=== PATIENT | male | born 1965 | race Hispanic/Latino ===

== ENCOUNTER 2020-08-31 12:39 | Emergency (ER) | payer SELFPAY ==
[2020-08-31 13:09] VITALS: BP 131/99
--- NOTE | 2020-08-31 13:12 | Emergency Department Report ---
ED General Adult HPI - General Chief complaint: Neck Pain/Injury Stated complaint: SWOLLEN LYMPH NODES Time Seen by Provider: 08/31/20 13:08 Source: patient Mode of arrival: Ambulatory Limitations: No Limitations - History of Present Illness Initial comments: 54-year-old male presents with complaints of lymphadenopathy in the neck x1 month. Patient states he saw his PCP regarding this about 1 week ago and was placed on 5 days of Amoxil. He states his symptoms improved and began to worsen once he completed the antibiotics. He states that there is mild tenderness to the lymph nodes, but denies any dysphagia, weight loss, fever/chills/sweats, fatigue, or history of cancer. He denies any past medical history states he is otherwise feeling well. -: Sudden - Related Data Previous Rx's Medication Instructions Recorded Last Taken Type Doxycycline Monohydrate 100 mg PO BID 10 Days #20 tablet 08/31/20 Unknown Rx Allergies Allergy/AdvReac Type Severity Reaction Status Date / Time No Known Allergies Allergy Unverified 08/31/20 13:09 ED Review of Systems ROS: Stated complaint: SWOLLEN LYMPH NODES Other details as noted in HPI Constitutional: denies: chills, diaphoresis, fever, malaise, weakness ENT: denies: dental pain Respiratory: denies: cough, shortness of breath Cardiovascular: denies: chest pain Endocrine: denies: excessive sweating Gastrointestinal: denies: nausea, vomiting Skin: denies: rash, lesions, change in color Neurological: denies: headache Hematological/Lymphatic: swollen glands ED Past Medical Hx - Past Medical History Previous Medical History?: No - Social History Smoking Status: Current Every Day Smoker Substance Use Type: None - Medications Home Medications: Home Medications Medication Instructions Recorded Confirmed Last Taken Type Doxycycline Monohydrate 100 mg PO BID 10 Days #20 tablet 08/31/20 Unknown Rx ED Physical Exam - General Limitations: No Limitations General appearance: alert, in no apparent distress - Head Head exam: Present: atraumatic, normocephalic - Eye Eye exam: Present: normal appearance. Absent: scleral icterus - ENT ENT exam: Present: normal exam, normal orophraynx - Neck Neck exam: Present: full ROM, lymphadenopathy (Bilateral anterior cervical lymphadenopathy noted with mild tenderness to palpation) - Respiratory Respiratory exam: Absent: respiratory distress - Cardiovascular Cardiovascular Exam: Present: regular rate - Neurological Exam Neurological exam: Present: alert, oriented X3 - Psychiatric Psychiatric exam: Present: normal affect, normal mood - Skin Skin exam: Present: warm, dry, intact, normal color. Absent: rash ED Course Vital Signs 08/31/20 13:06 Temperature 98.1 F Pulse Rate 82 Respiratory 18 Rate Blood Pressure 131/99 O2 Sat by Pulse 100 Oximetry ED Medical Decision Making - Lab Data Result diagrams: 08/31/20 13:37 08/31/20 13:37 - Medical Decision Making 54-year-old male presents with complaints of lymphadenopathy in the neck x1 month. Patient states he saw his PCP regarding this about 1 week ago and was placed on 5 days of Amoxil. He states his symptoms improved and began to worsen once he completed the antibiotics. He states that there is mild tenderness to the lymph nodes, but denies any dysphagia, weight loss, fever/chills/sweats, fatigue, or history of cancer. He denies any past medical history states he is otherwise feeling well. No significant abnormalities noted on CBC or CMP. Doxy given for empiric treatment. Patient is well-appearing and stable for discharge home. Recommend follow-up with primary care physician for further testing and evaluation. Discussed signs and symptoms that should prompt immediate return to emergency department in detail patient verbalized understanding. Critical care attestation.: If time is entered above; I have spent that time in minutes in the direct care of this critically ill patient, excluding procedure time. ED Disposition Clinical Impression: Cervical lymphadenopathy Disposition: [id number] TO HOME OR SELFCARE Is pt being admited?: No Condition: Stable Instructions: Lymphadenopathy Prescriptions: Doxycycline Monohydrate 100 mg PO BID 10 Days #20 tablet Referrals: PRIMARY CARE, [Primary Care Provider] - 3-5 Days
[2020-08-31 14:00] LABS: Basophils % (Auto) 0.5 % (0.0-1.8); Eosinophils # (Auto) 0.2 K/mm3 (0.0-0.4); Eosinophils % (Auto) 2.5 % (0.0-4.3); Hematocrit 45.6 % (35.5-45.6); Hemoglobin 15.4 gm/dl (11.8-15.2); Lymphocytes # (Auto) 2.7 K/mm3 (1.2-5.4); Lymphocytes % (Auto) 39.7 % (13.4-35.0); Mean Corpuscular HGB Conc 34 % (32-34); Mean Corpuscular Volume 93 fl (84-94); Monocytes # (Auto) 0.4 K/mm3 (0.0-0.8); Monocytes % (Auto) 6.4 % (0.0-7.3); Platelet Count 397 K/mm3 (140-440); Red Blood Count 4.91 M/mm3 (3.65-5.03); Red Cell Distribution Width 13.9 % (13.2-15.2)
[2020-08-31 14:21] LABS: Alanine Aminotransferase 20 units/L (7-56); Albumin 4.4 g/dL (3.9-5); Blood Urea Nitrogen 9 mg/dL (9-20); Calcium 9.5 mg/dL (8.4-10.2); Hemolysis Index 5
[2020-08-31 14:22] LABS: BUN/Creatinine Ratio 13
== END 2020-08-31 17:31 | disposition home or self-care (01) ==
LOC: ED 12:39
DX: R59.0 Localized enlarged lymph nodes (principal); F17.200 Nicotine dependence, unspecified, uncomplicated; Z79.899 Other long term (current) drug therapy
CPT/HCPCS: 36415; 80053; 85025; 86308; 99283

== ENCOUNTER 2021-04-29 10:11 | Inpatient (IN) | payer SELFPAY ==
--- NOTE | 2021-04-29 11:23 | Emergency Department Report ---
HPI - General Chief Complaint: Neuro Symptoms/Deficit Time Seen by Provider: 04/29/21 11:18 - HPI HPI: Patient present this morning secondary to weakness and slurred speech. He noticed that when he got up yesterday morning to get ready for work, he had s lurred speech. He states that he "felt awful." He felt as though he was dropping things and was weak on the left side. He stated that he kept spilling his coffee. Again, this was only left arm weakness. He did not notice any weakness involving the leg. Patient states that he thought his symptoms would get better and they have not. He states that he still has slurred speech and still feels as though he is dropping things with his left arm today. He decided to come in and see if he might of had a stroke. 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 He states that this is different. He denies paresthesias in the extremities. He has had no leg weakness. There is no incontinence of bowel or bladder. Patient denies recent head trauma. There is no cough or congestion. Has no chest pain. There is no shortness of breath. ED Past Medical Hx - Past Medical History Previous Medical History?: No Hx CVA: No Hx Heart Attack/AMI: No - Surgical History Past Surgical History?: Yes Additional Surgical History: hernia repair, [place] Palsy - Social History Smoking Status: Current Every Day Smoker Substance Use Type: None - Medications Home Medications: Home Medications Medication Instructions Recorded Confirmed Last Taken Type Doxycycline Monohydrate 100 mg PO BID 10 Days #20 tablet 08/31/20 Unknown Rx ED Review of Systems ROS: Stated complaint: POSSIBLE STROKE Other details as noted in HPI Comment: All other systems reviewed and negative Constitutional: denies: chills, fever Eyes: denies: vision change ENT: denies: hearing loss Respiratory: denies: cough Cardiovascular: denies: chest pain Endocrine: denies: increased thirst, increased urine Gastrointestinal: denies: abdominal pain Genitourinary: denies: dysuria Musculoskeletal: denies: back pain Skin: denies: rash Psychiatric: as per HPI Hematological/Lymphatic: denies: easy bruising Physical Exam - Physical Exam Vital Signs: Vital Signs 04/29/21 10:29 Temperature 98.2 F Pulse Rate 62 Respiratory 18 Rate Blood Pressure 133/92 [Right] O2 Sat by Pulse 96 Oximetry General: Well-developed, well-nourished male in no acute distress. Is cooperative and appropriate. Physical Exam: Patient does have some right facial droop consistent with prior Rea's palsy. He states that that is chronic. HEENT is otherwise normocephalic and atraumatic. Mucous membranes are moist. Pupils are equal round reactive to light. Extraocular movements are intact. Oropharynx reveals clear membranes. There is no erythema. Neck is supple without meningismus or lymphadenopathy. Trachea is midline. Heart is regular rate and rhythm without murmurs. Lungs are clear bilaterally. Abdomen is soft and nontender. It is flat. There is no organomegaly or mass. Back reveals no CVA tenderness. Extremities there are equal pulses. Reflexes are 2+ and brisk. Sensation is intact. Patient has no deformity. Skin is warm and dry. Neurologic exam reveals a alert and oriented male with right facial droop consistent with prior Rea's palsy. He has no pronator drift or dysdiadochokinesia. There is no sensory loss. Patient has 2+ reflexes. Strength is 5 out of 5. NIH score acutely is 0. He does have a one-point deficit from prior Rea's palsy with right side of his symptoms. His symptoms today are left-sided. ED Course Vital Signs 04/29/21 10:29 Temperature 98.2 F Pulse Rate 62 Respiratory 18 Rate Blood Pressure 133/92 [Right] O2 Sat by Pulse 96 Oximetry - Reevaluation(s) Reevaluation #1: 04/29/21 11:23 1115-labs and CT were ordered. Reevaluation #2: 04/29/21 11:41 CT was reviewed. Patient has intraparenchymal hemorrhage accounting for his symptoms. Neurosurgery was paged. Admission will be necessary. Reevaluation #3: 04/29/21 12:13 Case was discussed with Dr. Marinelli as well as Dr. Burton. Admission was planned. ICU bed will be requested. We will control the patient's blood pressure. He does have evidence of intraparenchymal bleed. He does not have evidence of uncontrolled hypertension. He is not coagulopathic and not antic oagulated. ED Medical Decision Making - Lab Data Result diagrams: 04/29/21 11:31 04/29/21 11:31 - Radiology Data Radiology results: image reviewed - Medical Decision Making Patient presented secondary to neurologic symptoms. He has evidence of intraparenchymal bleed requiring admission. This is not subdural or epidural in nature. It would be unlikely to require surgical evacuation. This does not appear to be ischemic. Patient does not have any trauma that would have accounted for this intraparenchymal hematoma. He will undergo admission, neuro checks, and repeat CT with neurosurgical consultation. Critical Care Time: Yes Critical care attestation.: If time is entered above; I have spent that time in minutes in the direct care of this critically ill patient, excluding procedure time. ED Disposition Clinical Impression: Intraparenchymal hematoma of brain Qualifiers: Encounter type: initial encounter Laterality: right Loss of consciousness presence/duration: without LOC Qualified Code(s): S06.340A - Traumatic hemorrhage of right cerebrum without loss of consciousness, initial encounter Disposition: ADMITTED INPATIENT Is pt being admited?: Yes Does the pt Need Aspirin: No Condition: Serious
[2021-04-29 11:44] LABS: Hematocrit 41.6 % (35.5-45.6); Hemoglobin 14.2 gm/dl (11.8-15.2); Mean Corpuscular HGB Conc 34 % (32-34); Mean Corpuscular Volume 95 fl (84-94); Platelet Count 358 K/mm3 (140-440); Red Blood Count 4.38 M/mm3 (3.65-5.03); Red Cell Distribution Width 13.8 % (13.2-15.2)
--- NOTE | 2021-04-29 11:57 | History and Physical Report ---
History of Present Illness Chief complaint: My words are slurred History of present illness: 55 YO Male with [place] Palsy, Nicotine Dependence presents to ED for evaluation. Patient states that he was in his usual state of health and upon awakening from sleep yesterday the patient reports "slurred speech". Patient also acknowledges left arm weakness and the inability to hold his coffee cup in his left hand. Patient was transported to [facility] via private vehicle for further care and evaluation of the aforementioned symptoms. The patient was seen and evaluated in the emergency department. All lab and imaging studies reviewed. The patient underwent CT scan of the brain which revealed a 2 x 2 x 2 cm right basal ganglia hematoma. Neurosurgery team consulted in ED. Patient admitted to ICU due to increased risk of worsening symptoms. Patient denies fever, chills, chest pain, palpitation, productive cough, skin rash, recent ill contacts, known exposure to COVID-19. No prior admission for review. No medication listed at time of admission for reconciliation. Past History Past Medical History: other (See HPI) Past Surgical History: hernia repair Social history: , smoking Family history: hypertension Medications and Allergies Allergies Allergy/AdvReac Type Severity Reaction Status Date / Time No Known Allergies Allergy Unverified 08/31/20 13:09 Home Medications Medication Instructions Recorded Confirmed Last Taken Type Doxycycline Monohydrate 100 mg PO BID 10 Days #20 tablet 08/31/20 Unknown Rx Review of Systems Constitutional: no weight loss, no weight gain, no fever, no chills Ears, nose, mouth and throat: no ear pain, no tinnitis, no decreased hearing, no nose pain, no nasal congestion, no nasal discharge Cardiovascular: no chest pain, no palpitations, no rapid/irregular heart beat, no syncope Respiratory: no cough, no cough with sputum, no shortness of breath, no dyspnea on exertion Gastrointestinal: no abdominal pain, no vomiting, no diarrhea, no change in bowel habits Genitourinary Male: no hematuria, no flank pain, no discharge, no urinary hesitancy Rectal: no pain, no incontinence, no bleeding Musculoskeletal: no neck stiffness, no shooting arm pain, no arm numbness/tingling, no low back pain, no shooting leg pain Integumentary: no rash, no redness, no wounds, no boils, no blisters Neurological: weakness, change in speech, no transient paralysis, no paralysis Psychiatric: no anxiety, no sleep disturbances, no insomnia, no change in appetite, no suicidal ideation Endocrine: no cold intolerance, no heat intolerance, no excessive thirst Hematologic/Lymphatic: no easy bruising, no lymphadenopathy Allergic/Immunologic: no urticaria, no allergic rhinitis, no angioedema Exam - Constitutional Vitals: Temp Pulse Resp BP Pulse Ox 98.2 F 62 18 133/92 96 04/29/21 10:04/29/21 10:29 04/29/21 10:04/29/21 10:04/29/21 10:29 General appearance: Present: mild distress - EENT Eyes: Present: PERRL ENT: hearing intact, clear oral mucosa - Neck Neck: Present: supple, normal ROM - Respiratory Respiratory effort: normal Respiratory: bilateral: CTA - Cardiovascular Heart Sounds: Present: S1 & S2. Absent: rub, click - Extremities Extremities: pulses symmetrical, No edema Peripheral Pulses: within normal limits - Abdominal General gastrointestinal: Present: soft, non-tender, non-distended, normal bowel sounds Male genitourinary: Present: normal - Integumentary Integumentary: Present: clear, warm, dry - Musculoskeletal Musculoskeletal: gait normal, strength equal bilaterally - Psychiatric Psychiatric: appropriate mood/affect, intact judgment & insight - Neurologic Neurologic: CNII-XII intact, moves all extremities Results - Labs CBC & Chem 7: 04/29/21 11:31 04/29/21 11:31 Labs: Abnormal lab results 04/29/21 Range/Units 11:31 MCV 95 H (84-94) fl Assessment and Plan - Patient Problems (1) Intraparenchymal hematoma of brain Current Visit: No Status: Acute Qualifiers: Encounter type: initial encounter Laterality: right Loss of consciousness presence/duration: without LOC Qualified Code(s): S06.340A - Traumatic hemorrhage of right cerebrum without loss of consciousness, initial encounter Plan to address problem: CT head, neuro checks every hour, seizure precautions, aspiration precautions, fall precautions, neurosurgery team consulted, critical care team consulted, repeat CT scan of the head at 1700 hrs. Maintain systolic blood pressure less than or equal to 140 mmHg. Hydralazine 10 mg IV every 6 hours as needed for systolic blood pressure greater than or equal to 140 mmHg. The high probability of a clinically significant, sudden or life threatening deterioration of the [neuro] system(s) required my full and direct attention, intervention and personal management. The aggregate critical care time was [65] minutes. This time is in addition to time spent performing reported procedures but includes the following: [x] Data Review and interpretation [x] Patient assessment and monitoring of vital signs [x] Documentation [x] Medication orders and management (2) Nicotine dependence Current Visit: Yes Status: Acute Qualifiers: Nicotine product type: cigarettes Substance use status: in withdrawal Qualified Code(s): F17.213 - Nicotine dependence, cigarettes, with withdrawal Plan to address problem: Supportive care, smoking cessation counseling, behavior change counseling, +15 minutes. (3) DVT prophylaxis Current Visit: Yes Status: Acute Plan to address problem: SCDs bilateral lower extremities while in bed, hold anticoagulation at this time due to intraparenchymal hemorrhage
[2021-04-29 12:05] LABS: BUN/Creatinine Ratio 14; Blood Urea Nitrogen 11 mg/dL (9-20); Calcium 9.1 mg/dL (8.4-10.2); Hemolysis Index 9
--- NOTE | 2021-04-29 12:07 | Cat Scan Report ---
. CT head/brain wo con INDICATION / CLINICAL INFORMATION: 55 years Male; dysarthria, left hand weakness, evaluate for strok. TECHNIQUE: Routine CT head without contrast. All CT scans at this location are performed using CT dos e reduction for ALARA by means of automated exposure control. COMPARISON: None. FINDINGS: BRAIN / INTRACRANIAL CONTENTS: There is an acute hematoma centered along the posterior right basal ga nglia measuring 2.1 cm AP by 2.2 cm transverse by 2.6 cm sagittally in greatest dimensions. This find ing may be on a hypertensive basis given the location. There is surrounding edema with mild degree of mass effect and slight midline shift. The brain parenchyma otherwise demonstrate appropriate attenua tion for age. There is mild asymmetry of the temporal horns, slightly greater on the right. This finding and may be developmental or continued follow-up would be recommended to exclude developing a hydrocephalus at. ORBITS: No significant abnormality of visualized orbits. SINUSES / MASTOIDS: No significant abnormality in the visualized paranasal sinuses or mastoid air paty ls. CRANIOCERVICAL JUNCTION: No significant abnormality. ADDITIONAL FINDINGS: None. IMPRESSION: 1. There is a 2.1 x 2.2 x 2.6 cm acute hematoma centered within the right basal ganglia with associat ed surrounding edema and mild mass effect as detailed above. The findings represent a positive clinical test result and were discovered at 10:53 AM and called araseli rgently to the requesting physician was a number was obtained at 10:56 AM Central standard time.. Signer Name: Xavi Montanez MD Signed: 04/29/2021 12:02 PM Workstation Name: [id number]
[2021-04-29] MEDS ORDERED: HYDROmorphone 1 MG/1 ML INJ IV PRN (13:00)
[2021-04-29] MEDS ORDERED: hydrALAZINE 20 MG/1 ML INJ IV PRN (13:00)
[2021-04-29] MEDS ORDERED: oxyCODONE /ACETAMINOPHEN 5-325MG TAB PO PRN (13:00)
[2021-04-29] MEDS ORDERED: ACETAMINOPHEN 325 MG TAB PO PRN (13:00)
[2021-04-29] MEDS ORDERED: NICOTINE 7 MG/24 HR PATCH TD SCH (17:00)
--- NOTE | 2021-04-29 17:34 | Cat Scan Report ---
CT BRAIN: 04/29/2021 at 1657 hours ET INDICATION / CLINICAL INFORMATION: Intracranial hemorrhage. Follow-up COMPARISON: 04/29/2021 at 1124 hours ET FINDINGS: BRAIN/INTRACRANIAL STRUCTURES: Unenhanced CT images of the brain were obtained and compared to the ea rlier exam. There is been no change. Again seen is the 2.6 cm hemorrhage centered in the region of the right basal ganglia some surroundin g edema. No new hemorrhage or lesion is present. Ventricles and sulci remain normal in size and shape. EXTRACRANIAL STRUCTURES: Unremarkable. IMPRESSION: Stable right subcortical hemorrhage. No evidence of superimposed abnormality. All CT scans at this location are performed using dose reduction to ALARA by means of automated expos ure control. Signer Name: Herve Shah MD Signed: 04/29/2021 5:29 PM Workstation Name: [id number]
--- NOTE | 2021-04-29 23:11 | Consultation ---
History of Present Illness Consult date: 04/29/21 Requesting physician: LACI ROBISON Reason for Consult: Brain hemorrhage Chief complaint: left hand weakness History of present illness: Denis Pittman is a 55 y/o M w/ history of Rea's Palsy, brought to [facility] ER on yesterday due to acute onset left sided clumsiness and weakness. He noticed that he was unable to grasp his coffee cup this morning, which raised his concern. CT head revealed a right putaminal hemorrhage, measuring 2.6 cm. There is no hydrocephalus or significant mass effect. Repeat CT head is stable. Mr. Pittman denies significant headache. Past History Past Medical History: other (See HPI) Past Surgical History: hernia repair Social history: , smoking Family history: hypertension Medications and Allergies Allergies Allergy/AdvReac Type Severity Reaction Status Date / Time No Known Allergies Allergy Unverified 08/31/20 13:09 Home Medications Medication Instructions Recorded Confirmed Last Taken Type Doxycycline Monohydrate 100 mg PO BID 10 Days #20 tablet 08/31/20 Unknown Rx Active Meds: Active Medications Acetaminophen (Acetaminophen 325 Mg Tab) 650 mg PO Q6H PRN PRN Reason: Pain MILD(1-3)/Fever >100.5/[place] Hydralazine HCl (Hydralazine 20 Mg/1 Ml Inj) 10 mg IV Q6HR PRN PRN Reason: Hypertension Hydromorphone HCl (Hydromorphone 1 Mg/1 Ml Inj) 0.5 mg IV Q12H PRN PRN Reason: Pain , Severe (7-10) Nicotine (Nicotine 7 Mg/24 Hr Patch) 7 mg TD QDAY [facility] Last Admin: 04/29/21 17:20 Dose: 7 mg Documented by: Oxycodone/Acetaminophen (Oxycodone /Acetaminophen 5-325mg Tab) 1 tab PO Q12H PRN PRN Reason: Pain, Moderate (4-6) Sodium Chloride (Sodium Chloride 0.9% 10 Ml Flush Syringe) 10 ml IV BID [facility] Last Admin: 04/29/21 21:44 Dose: 10 ml Documented by: Sodium Chloride (Sodium Chloride 0.9% 10 Ml Flush Syringe) 10 ml IV PRN PRN PRN Reason: LINE FLUSH Review of Systems All systems: negative (what is specified in HPI) Physical Examination - Vital Signs Vital Signs: Vital Signs Temp Pulse Resp BP Pulse Ox 98.2 F 62 18 133/92 96 04/29/21 10:29 04/29/21 10:29 04/29/21 10:29 04/29/21 10:29 04/29/21 10:29 - Physical Exam Narrative exam: 55 y/o M w/ right putaminal hemorrhage -no surgical intervention -maintain SBP < 140 -PT/OT/ST -hold blood thinners -will arrange for outpatient follow up in [address] head -please notify if questions/concerns Results - Laboratory Findings CBC and BMP: 04/29/21 11:31 04/29/21 11:31 Abnormal Lab Findings: Abnormal Labs 04/29/21 04/29/21 11:31 11:31 MCV 95 H Chloride 107.8 H Glucose 68 L
--- NOTE | 2021-04-30 07:51 | Progress Note ---
Assessment and Plan Assessment and plan: -- Intraparenchymal hematoma of brain Current Visit: No Status: Acute CT head without contrast 04/29/2021; there is a 2.1 x 2.2 x 2.6 cm acute hematoma centered within the right basal ganglia with associated surrounding edema and mild mass-effect as detailed above. CT head without contrast; 04/29/2021; 6 hours after the first CT head . stable right subcortical hemorrhage no evidence of superimposed abnormality Maintain systolic blood pressure less than or equal to 140 mmHg. Hydralazine 10 mg IV every 6 hours as needed for systolic blood pressure greater than or equal to 140 mmHg. Neuro surgery evaluated the patient, no surgical intervention, Recommend PT, OT and speech therapy. The high probability of a clinically significant, sudden or life threatening deterioration of the [neuro] system(s) required my full and direct attention, i ntervention and personal management. The aggregate critical care time was [65] minutes. This time is in addition to time spent performing reported procedures but includes the following: [x] Data Review and interpretation [x] Patient assessment and monitoring of vital signs [x] Documentation [x] Medication orders and management --Nicotine dependence Current Visit: Yes Status: Acute smoking cessation counseling, behavior change counseling, +17 minutes Nicotine patch as needed --DVT prophylaxis Current Visit: Yes Status: Acute SCDs bilateral lower extremities while in bed, No anticoagulation for prophylaxis due to intraparenchymal hemorrhage We will closely monitor the patient and adjust management as needed Follow PT OT and ST evaluation and recommendations Neurosurgical evaluation recommendations noted and appreciated Plan of care discussed with the patient as well as his nurse 04/30/2021; Follow PT OT ST Neurosurgery evaluation noted and appreciated no surgical intervention Cleared for discharge after PT OT ST and follow-up patient History Interval history: I have seen and examined the patient at the bedside in ER this morning awaiting bed assignment Patient feels better no new complaints Denies headache dizziness or any focal weakness Hospitalist Physical - Constitutional Vitals: Temp Pulse Resp BP Pulse Ox 97.8 F 46 L 12 118/68 98 04/30/21 06:52 04/30/21 06:52 04/30/21 06:52 04/30/21 06:52 04/30/21 06:52 General appearance: Present: no acute distress, well-nourished - EENT Eyes: Present: PERRL, EOM intact - Neck Neck: Present: supple, normal ROM - Respiratory Respiratory effort: normal Respiratory: bilateral: diminished, negative: wheezing - Cardiovascular Rhythm: regular Heart Sounds: Present: S1 & S2 - Extremities Extremities: no ischemia, No edema - Abdominal General gastrointestinal: soft, non-tender, non-distended, normal bowel sounds - Integumentary Integumentary: Present: clear, warm - Psychiatric Psychiatric: appropriate mood/affect, cooperative - Neurologic Neurologic: CNII-XII intact, moves all extremities Results - Labs CBC & Chem 7: 04/30/21 08:04 04/30/21 08:04 Labs: Laboratory Last Values WBC 7.8 K/mm3 (4.5-11.0) 04/29/21 11:31 RBC 4.38 M/mm3 (3.65-5.03) 04/29/21 11:31 Hgb 14.2 gm/dl (11.8-15.2) 04/29/21 11:31 Hct 41.6 % (35.5-45.6) 04/29/21 11:31 MCV 95 fl (84-94) H 04/29/21 11:31 MCH 32 pg (28-32) 04/29/21 11:31 MCHC 34 % (32-34) 04/29/21 11:31 RDW 13.8 % (13.2-15.2) 04/29/21 11:31 Plt Count 358 K/mm3 (140-440) 04/29/21 11:31 Sodium 143 mmol/L (137-145) 04/29/21 11:31 Potassium 3.6 mmol/L (3.6-5.0) 04/29/21 11:31 Chloride 107.8 mmol/L (98-107) H 04/29/21 11:31 Carbon Dioxide 29 mmol/L (22-30) 04/29/21 11:31 Anion Gap 10 mmol/L 04/29/21 11:31 BUN 11 mg/dL (9-20) 04/29/21 11:31 Creatinine 0.8 mg/dL (0.8-1.3) 04/29/21 11:31 Estimated GFR > 60 ml/min 04/29/21 11:31 BUN/Creatinine Ratio 14 % 04/29/21 11:31 Glucose 68 mg/dL (75-100) L 04/29/21 11:31 Calcium 9.1 mg/dL (8.4-10.2) 04/29/21 11:31 Active Medications - Current Medications Current Medications: Generic Name Dose Route Start Last Admin Trade Name Freq PRN Reason Stop Dose Admin Acetaminophen 650 mg 04/29/21 13:00 Acetaminophen 325 Mg Tab PO Q6H PRN Pain MILD(1-3)/Fever >100.5/TILLMAN Hydralazine HCl 10 mg 04/29/21 13:00 Hydralazine 20 Mg/1 Ml Inj IV Q6HR PRN Hypertension Hydromorphone HCl 0.5 mg 04/29/21 13:00 Hydromorphone 1 Mg/1 Ml Inj IV Q12H PRN Pain , Severe (7-10) Nicotine 7 mg 04/29/21 17:00 04/29/21 17:20 Nicotine 7 Mg/24 Hr Patch TD 7 mg QDAY LILLIAM Administration Oxycodone/Acetaminophen 1 tab 04/29/21 13:00 Oxycodone /Acetaminophen 5-325mg Tab PO Q12H PRN Pain, Moderate (4-6) Sodium Chloride 10 ml 04/29/21 22:00 04/29/21 21:44 Sodium Chloride 0.9% 10 Ml Flush Syringe IV 10 ml BID LILLIAM Administration Sodium Chloride 10 ml 04/29/21 13:00 Sodium Chloride 0.9% 10 Ml Flush Syringe IV PRN PRN LINE FLUSH
[2021-04-30 08:30] LABS: Basophils # (Auto) 0.1 K/mm3 (0.0-0.1); Eosinophils # (Auto) 0.1 K/mm3 (0.0-0.4); Eosinophils % (Auto) 2.1 % (0.0-4.3); Hematocrit 41.1 % (35.5-45.6); Hemoglobin 14.2 gm/dl (11.8-15.2); Lymphocytes # (Auto) 2.5 K/mm3 (1.2-5.4); Lymphocytes % (Auto) 35.1 % (13.4-35.0); Mean Corpuscular HGB Conc 35 % (32-34); Mean Corpuscular Volume 95 fl (84-94); Monocytes # (Auto) 0.6 K/mm3 (0.0-0.8); Monocytes % (Auto) 8.3 % (0.0-7.3); Platelet Count 315 K/mm3 (140-440); Red Blood Count 4.32 M/mm3 (3.65-5.03); Red Cell Distribution Width 13.8 % (13.2-15.2)
[2021-04-30 08:37] LABS: BUN/Creatinine Ratio 18; Blood Urea Nitrogen 14 mg/dL (9-20); Calcium 8.8 mg/dL (8.4-10.2); Hemolysis Index 9
--- NOTE | 2021-04-30 12:12 | Event Note ---
Date: 04/30/21
--- NOTE | 2021-04-30 12:14 | Progress Note ---
Assessment and Plan Assessment and plan: --ESBL positive surgical wound culture; Current Visit: Yes Status: Acute ID ID recommended 7 days of meropenem starting from 04/22/2021 evening dose, Midline is placed patient is self-pay and cannot afford these antibiotics patient will complete antibiotics inpatient --Sepsis due to ESBL infection Current Visit: Yes Status: Acute ID evaluation noted, total 7 days of IV meropenem every 8 hours -- Acute appendicitis with abscess Iatrogenic sigmoid colon injury Current Visit: Yes Status: Acute Surgery evaluated the patient s/p surgery 04/18/2021 1) Diagnostic laparoscopy 2) Open appendectomy with drainage of appendiceal abscess 3) Open repair of iatrogenic sigmoid colon injury Plan to discharge the patient today per Dr. Grey's recommendation However wound cultures came back positive for ESBL Discharge held ID evaluated, started on meropenem Contact isolation, closely monitor --Hiccups; Current Visit: Yes Status: Acute IV and oral Thorazine Advised to drink plenty of oral fluids Sitting the chair upright after every meal for half an hour --Small bowel obstruction Current Visit: Yes Status: Acute Resolved, surgeon advance diet --History of HIV (human immunodeficiency virus infection) Current Visit: Yes Status: Chronic Continue prehospital antiretroviral therapy, outpatient infectious disease follow-up. Upon discharge --DVT prophylaxis Current Visit: Yes Status: Acute Subcu Lovenox Discharge held due to positive ESBL surgical cultures, ID recommend total 7 days of IV meropenem Midline requested, DC planning per case management We will closely monitor the patient and adjust the management as needed Daily hospital course; 04/21/2021; Dr. Grey evaluated the patient, cleared for discharge for tomorrow However no ride available 04/22/2021; Patient's discharge is held due to positive ESBL surgical cultures ID consulted, started on meropenem, continue supportive care 04/23/2021; Patient is receiving imipenem as recommended by ID Total 8 days of IV meropenem, midline requested case management to assist with discharge planning and medications DC planning per CM ,disposition per surgery Patient has hiccups, Thorazine ordered I spoke with patient's sister Ms. Baca and discussed in detail patient's condition treatment and discharge plan She had many questions about DC planning, advised her to call back tomorrow and speak with the case management. She verbalized understanding 04/24/2021; Patient is receiving meropenem day 2/7 Case management assisting with home antibiotics Received midline,Intermittent hiccups, continue Thorazine Ambulate in the hallway as tolerated 04/25/2021 Patient feels better, hiccups have significantly improved Continue IV antibiotics, complete total 7 days 04/26/2021; continue antibiotics day 4 follow ID, surgery recommendations disposition discharge when stable and cleared by surgery and ID Resume service today; 04/29/2021; [facility]rey PCR test is positive COVID-19 infection Isolation precautions Transfer the patient to third floor[Covid floor\ Reconsult ID Pulmonary consulted possible bronchoscopy Hospitalist Physical - Constitutional Vitals: Temp Pulse Resp BP Pulse Ox 97.8 F 49 L 13 114/72 99 04/30/21 06:52 04/30/21 11:01 04/30/21 11:01 04/30/21 11:01 04/30/21 11:01 General appearance: Present: mild distress Results - Labs CBC & Chem 7: 04/30/21 08:04 04/30/21 08:04 Labs: Laboratory Last Values WBC 7.0 K/mm3 (4.5-11.0) 04/30/21 08:04 RBC 4.32 M/mm3 (3.65-5.03) 04/30/21 08:04 Hgb 14.2 gm/dl (11.8-15.2) 04/30/21 08:04 Hct 41.1 % (35.5-45.6) 04/30/21 08:04 MCV 95 fl (84-94) H 04/30/21 08:04 MCH 33 pg (28-32) H 04/30/21 08:04 MCHC 35 % (32-34) H 04/30/21 08:04 RDW 13.8 % (13.2-15.2) 04/30/21 08:04 Plt Count 315 K/mm3 (140-440) 04/30/21 08:04 Lymph % (Auto) 35.1 % (13.4-35.0) H 04/30/21 08:04 [place] % (Auto) 8.3 % (0.0-7.3) H 04/30/21 08:04 Eos % (Auto) 2.1 % (0.0-4.3) 04/30/21 08:04 Baso % (Auto) 1.0 % (0.0-1.8) 04/30/21 08:04 Lymph # (Auto) 2.5 K/mm3 (1.2-5.4) 04/30/21 08:04 [place] # (Auto) 0.6 K/mm3 (0.0-0.8) 04/30/21 08:04 Eos # (Auto) 0.1 K/mm3 (0.0-0.4) 04/30/21 08:04 Baso # (Auto) 0.1 K/mm3 (0.0-0.1) 04/30/21 08:04 Seg Neutrophils % 53.5 % (40.0-70.0) 04/30/21 08:04 Seg Neutrophils # 3.8 K/mm3 (1.8-7.7) 04/30/21 08:04 Sodium 142 mmol/L (137-145) 04/30/21 08:04 Potassium 3.9 mmol/L (3.6-5.0) 04/30/21 08:04 Chloride 107.2 mmol/L (98-107) H 04/30/21 08:04 Carbon Dioxide 26 mmol/L (22-30) 04/30/21 08:04 Anion Gap 13 mmol/L 04/30/21 08:04 BUN 14 mg/dL (9-20) 04/30/21 08:04 Creatinine 0.8 mg/dL (0.8-1.3) 04/30/21 08:04 Estimated GFR > 60 ml/min 04/30/21 08:04 BUN/Creatinine Ratio 18 % 04/30/21 08:04 Glucose 82 mg/dL (75-100) 04/30/21 08:04 Calcium 8.8 mg/dL (8.4-10.2) 04/30/21 08:04 Active Medications - Current Medications Current Medications: Generic Name Dose Route Start Last Admin Trade Name Freq PRN Reason Stop Dose Admin Acetaminophen 650 mg 04/29/21 13:00 Acetaminophen 325 Mg Tab PO Q6H PRN Pain MILD(1-3)/Fever >100.5/TILLMAN Hydralazine HCl 10 mg 04/29/21 13:00 Hydralazine 20 Mg/1 Ml Inj IV Q6HR PRN Hypertension Hydromorphone HCl 0.5 mg 04/29/21 13:00 Hydromorphone 1 Mg/1 Ml Inj IV Q12H PRN Pain , Severe (7-10) Nicotine 7 mg 04/29/21 17:00 04/29/21 17:20 Nicotine 7 Mg/24 Hr Patch TD 7 mg QDAY LILLIAM Administration Oxycodone/Acetaminophen 1 tab 04/29/21 13:00 Oxycodone /Acetaminophen 5-325mg Tab PO Q12H PRN Pain, Moderate (4-6) Sodium Chloride 10 ml 04/29/21 22:00 04/29/21 21:44 Sodium Chloride 0.9% 10 Ml Flush Syringe IV 10 ml BID LILLIAM Administration Sodium Chloride 10 ml 04/29/21 13:00 Sodium Chloride 0.9% 10 Ml Flush Syringe IV PRN PRN LINE FLUSH
--- NOTE | 2021-04-30 12:15 | Consultation ---
History of Present Illness Consult date: 04/30/21 Requesting physician: JUMANA EVANGELISTA Reason for consult: other (Acute Encephalopathy) History of present illness: Consult placed for ICU admission for neurochecks pending repeat CT brain Repeat CT brain reviewed by COLE and he can be stepped down .... please re-consult if needed Past History Past Medical History: other (See HPI) Past Surgical History: hernia repair Social history: , smoking Family history: hypertension Medications and Allergies Allergies Allergy/AdvReac Type Severity Reaction Status Date / Time No Known Allergies Allergy Unverified 08/31/20 13:09 Home Medications Medication Instructions Recorded Confirmed Last Taken Type Doxycycline Monohydrate 100 mg PO BID 10 Days #20 tablet 08/31/20 Unknown Rx Active Meds: Active Medications Acetaminophen (Acetaminophen 325 Mg Tab) 650 mg PO Q6H PRN PRN Reason: Pain MILD(1-3)/Fever >100.5/TILLMAN Hydralazine HCl (Hydralazine 20 Mg/1 Ml Inj) 10 mg IV Q6HR PRN PRN Reason: Hypertension Hydromorphone HCl (Hydromorphone 1 Mg/1 Ml Inj) 0.5 mg IV Q12H PRN PRN Reason: Pain , Severe (7-10) Nicotine (Nicotine 7 Mg/24 Hr Patch) 7 mg TD QDAY [facility] Last Admin: 04/29/21 17:20 Dose: 7 mg Documented by: Oxycodone/Acetaminophen (Oxycodone /Acetaminophen 5-325mg Tab) 1 tab PO Q12H PRN PRN Reason: Pain, Moderate (4-6) Sodium Chloride (Sodium Chloride 0.9% 10 Ml Flush Syringe) 10 ml IV BID [facility] Last Admin: 04/29/21 21:44 Dose: 10 ml Documented by: Sodium Chloride (Sodium Chloride 0.9% 10 Ml Flush Syringe) 10 ml IV PRN PRN PRN Reason: LINE FLUSH Physical Examination Vital signs: Vital Signs Temp Pulse Resp BP Pulse Ox 98.2 F 62 18 133/92 96 04/29/21 10:29 04/29/21 10:29 04/29/21 10:29 04/29/21 10:29 04/29/21 10:29 Results - Laboratory Findings CBC and BMP: 04/30/21 08:04 04/30/21 08:04 Abnormal lab findings: Abnormal Labs 04/29/21 04/29/21 04/30/21 11:31 11:31 08:04 MCV 95 H 95 H MCH 33 H MCHC 35 H Lymph % (Auto) 35.1 H [place] % (Auto) 8.3 H Chloride 107.8 H Glucose 68 L 04/30/21 08:04 MCV MCH MCHC Lymph % (Auto) [place] % (Auto) Chloride 107.2 H Glucose
--- NOTE | 2021-04-30 20:12 | Cat Scan Report ---
CT BRAIN: 04/30/2021 INDICATION / CLINICAL INFORMATION: f/u intraparenchymal hematoma. COMPARISON: CT brain 04/29/2021 FINDINGS: BRAIN/INTRACRANIAL STRUCTURES: Unenhanced CT images of the brain were obtained and compared to the pr ior exam from 04/29/2021. There is been no change. Again seen is the 2.6 cm hemorrhage centered in the region of the right basal ganglia with some surro unding edema. There is no evidence of superimposed abnormality. Underlying brain parenchyma is otherw ise unremarkable. EXTRACRANIAL STRUCTURES: Unremarkable. IMPRESSION: Stable right subcortical hemorrhage. All CT scans at this location are performed using dose reduction to ALARA by means of automated expos ure control. Signer Name: Herve Shah MD Signed: 04/30/2021 8:07 PM Workstation Name: [id number]
[2021-05-01 06:40] VITALS: BP 105/69
--- NOTE | 2021-05-01 07:55 | Progress Note ---
Assessment and Plan Assessment and plan: -- Intraparenchymal hematoma of brain Current Visit: No Status: Acute CT head without contrast 04/29/2021; there is a 2.1 x 2.2 x 2.6 cm acute hematoma centered within the right basal ganglia with associated surrounding edema and mild mass-effect as detailed above. CT head without contrast; 04/29/2021; 6 hours after the first CT head . stable right subcortical hemorrhage no evidence of superimposed abnormality f/u CT head without contrast 04/30/2021; stable right subcortical hemorrhage Maintain systolic blood pressure less than or equal to 140 mmHg. Hydralazine 10 mg IV every 6 hours as needed for systolic blood pressure greater than or equal to 140 mmHg. Neuro surgery evaluated the patient, no surgical intervention, Recommend PT, OT and speech therapy. The high probability of a clinically significant, sudden or life threatening det erioration of the [neuro] system(s) required my full and direct attention, intervention and personal management. The aggregate critical care time was [65] minutes. This time is in addition to time spent performing reported procedures but includes the following: [x] Data Review and interpretation [x] Patient assessment and monitoring of vital signs [x] Documentation [x] Medication orders and management --Nicotine dependence Current Visit: Yes Status: Acute smoking cessation counseling, behavior change counseling, +17 minutes Nicotine patch as needed --DVT prophylaxis Current Visit: Yes Status: Acute SCDs bilateral lower extremities while in bed, No anticoagulation for prophylaxis due to intraparenchymal hemorrhage We will closely monitor the patient and adjust management as needed Follow PT OT and ST evaluation and recommendations Neurosurgical evaluation recommendations noted and appreciated Plan of care discussed with the patient as well as his nurse 04/30/2021; Follow PT OT ST Neurosurgery evaluation noted and appreciated no surgical intervention Cleared for discharge after PT OT ST and follow-up patient 05/01/2021; Pending PT OT ST as recommended by neurosurgery Discharge if stable History Interval history: I have seen and examined the patient in ER awaiting bed assignment Patient has no new complaints Follow-up CT scan done yesterday evening show stable subcortical right hemorrhage Vital signs noted Hospitalist Physical - Constitutional Vitals: Temp Pulse Resp BP Pulse Ox 97.8 F 50 L 13 105/69 98 04/30/21 06:52 05/01/21 06:31 05/01/21 06:31 05/01/21 06:39 05/01/21 06:31 General appearance: Present: no acute distress, well-nourished - EENT Eyes: Present: PERRL, EOM intact - Neck Neck: Present: supple, normal ROM - Respiratory Respiratory effort: normal Respiratory: bilateral: diminished, negative: rales, rhonchi, wheezing - Cardiovascular Rhythm: regular Heart Sounds: Present: S1 & S2 - Extremities Extremities: no ischemia, No edema - Abdominal General gastrointestinal: soft, non-tender, non-distended, normal bowel sounds - Integumentary Integumentary: Present: clear, warm - Psychiatric Psychiatric: appropriate mood/affect, cooperative - Neurologic Neurologic: moves all extremities Results - Labs CBC & Chem 7: 04/30/21 08:04 04/30/21 08:04 Labs: Laboratory Last Values WBC 7.0 K/mm3 (4.5-11.0) 04/30/21 08:04 RBC 4.32 M/mm3 (3.65-5.03) 04/30/21 08:04 Hgb 14.2 gm/dl (11.8-15.2) 04/30/21 08:04 Hct 41.1 % (35.5-45.6) 04/30/21 08:04 MCV 95 fl (84-94) H 04/30/21 08:04 MCH 33 pg (28-32) H 04/30/21 08:04 MCHC 35 % (32-34) H 04/30/21 08:04 RDW 13.8 % (13.2-15.2) 04/30/21 08:04 Plt Count 315 K/mm3 (140-440) 04/30/21 08:04 Lymph % (Auto) 35.1 % (13.4-35.0) H 04/30/21 08:04 [place] % (Auto) 8.3 % (0.0-7.3) H 04/30/21 08:04 Eos % (Auto) 2.1 % (0.0-4.3) 04/30/21 08:04 Baso % (Auto) 1.0 % (0.0-1.8) 04/30/21 08:04 Lymph # (Auto) 2.5 K/mm3 (1.2-5.4) 04/30/21 08:04 [place] # (Auto) 0.6 K/mm3 (0.0-0.8) 04/30/21 08:04 Eos # (Auto) 0.1 K/mm3 (0.0-0.4) 04/30/21 08:04 Baso # (Auto) 0.1 K/mm3 (0.0-0.1) 04/30/21 08:04 Seg Neutrophils % 53.5 % (40.0-70.0) 04/30/21 08:04 Seg Neutrophils # 3.8 K/mm3 (1.8-7.7) 04/30/21 08:04 Sodium 142 mmol/L (137-145) 04/30/21 08:04 Potassium 3.9 mmol/L (3.6-5.0) 04/30/21 08:04 Chloride 107.2 mmol/L (98-107) H 04/30/21 08:04 Carbon Dioxide 26 mmol/L (22-30) 04/30/21 08:04 Anion Gap 13 mmol/L 04/30/21 08:04 BUN 14 mg/dL (9-20) 04/30/21 08:04 Creatinine 0.8 mg/dL (0.8-1.3) 04/30/21 08:04 Estimated GFR > 60 ml/min 04/30/21 08:04 BUN/Creatinine Ratio 18 % 04/30/21 08:04 Glucose 82 mg/dL (75-100) 04/30/21 08:04 Calcium 8.8 mg/dL (8.4-10.2) 04/30/21 08:04 Active Medications - Current Medications Current Medications: Generic Name Dose Route Start Last Admin Trade Name Freq PRN Reason Stop Dose Admin Acetaminophen 650 mg 04/29/21 13:00 Acetaminophen 325 Mg Tab PO Q6H PRN Pain MILD(1-3)/Fever >100.5/TILLMAN Hydralazine HCl 10 mg 04/29/21 13:00 Hydralazine 20 Mg/1 Ml Inj IV Q6HR PRN Hypertension Hydromorphone HCl 0.5 mg 04/29/21 13:00 Hydromorphone 1 Mg/1 Ml Inj IV Q12H PRN Pain , Severe (7-10) Nicotine 7 mg 04/29/21 17:00 04/29/21 17:20 Nicotine 7 Mg/24 Hr Patch TD 7 mg QDAY LILLIAM Administration Oxycodone/Acetaminophen 1 tab 04/29/21 13:00 Oxycodone /Acetaminophen 5-325mg Tab PO Q12H PRN Pain, Moderate (4-6) Sodium Chloride 10 ml 04/29/21 22:00 04/29/21 21:44 Sodium Chloride 0.9% 10 Ml Flush Syringe IV 10 ml BID LILLIAM Administration Sodium Chloride 10 ml 04/29/21 13:00 Sodium Chloride 0.9% 10 Ml Flush Syringe IV PRN PRN LINE FLUSH
--- NOTE | 2021-05-01 10:09 | Discharge Summary ---
Providers - Providers Date of Admission: 04/29/21 11:58 Date of discharge: 05/01/21 Attending physician: LEEANNE DHILLON 04/29/21 11:58 Consult to Physician [CONS] Routine Comment: Consulting Provider: BILL MORA II Physician Instructions: Reason For Exam: IPH 04/29/21 11:59 Consult to Physician [CONS] Routine Comment: Consulting Provider: NARGIS SNIDER Physician Instructions: Reason For Exam: ICH 04/30/21 07:37 Occupational Therapy Evaluate and Treat [CONS] Routine Comment: Evaluate and treat/DC needs Reason For Exam: Intraparenchymal[brain] hemorrhage with neuro symp Physical Therapy Evaluation and Treat [CONS] Routine Comment: Evaluate and treat/DC needs Reason For Exam: Intra brain parenchymal hemorrhage/neuro symptoms Speech Therapy Evaluation and Treat [CONS] Routine Reason For Exam: Speech difficulty/intracranial bleed,evaluate/yana Primary care physician: SLOT AMBASSADOR Hospitalization Reason for admission: Slurred speech/mild left-sided weakness Condition: Stable Pertinent studies: CT head without contrast 04/29/2021; there is a 2.1 x 2.2 x 2.6 cm acute hematoma centered within the right basal ganglia with associated surrounding edema and mild mass-effect as detailed above. CT head without contrast; 04/29/2021; 6 hours [address] the first CT head . stable right subcortical hemorrhage no evidence of superimposed abnormality f/u CT head without contrast 04/30/2021; stable right subcortical hemorrhage Hospital course: My words are slurred History of present illness: 55 YO Male with [place] Palsy, Nicotine Dependence presents to ED for evaluation. Patient states that he was in his usual state of health and upon awakening from sleep yesterday the patient reports "slurred speech". Patient also acknowledges left arm weakness and the inability to hold his coffee cup in his left hand. Patient was transported to [facility] via private vehicle for further care and evaluation of the aforementioned symptoms. The patient was seen and evaluated in the emergency department. All lab and imaging studies reviewed. The patient underwent CT scan of the brain which revealed a 2 x 2 x 2 cm right basal ganglia hematoma. Neurosurgery team consulted in ED. Patient admitted to ICU due to increased risk of worsening symptoms. Patient denies fever, chills, chest pain, palpitation, productive cough, skin rash, recent ill contacts, known exposure to COVID-19. No prior admission for review. No medication listed at time of admission for reconciliation. Patient was admitted evaluated by neurosurgery, Dr. Bill Mora neurosurgeon has evaluated the patient, follow-up to CT scans of brain Show stable hematoma no other acute findings Neurosurgeon did not feel patient has any surgical indication, advised PT and speech therapy and discharge home Follow-up with us for further evaluation Patient speech is very clear, ambulated around the ED department along with the nurse without support without unsteady gait, And patient did not PT and ST evaluations' Today patient is comfortable denies headache or dizziness Vital signs stable Physical exam discharge is unremarkable Stable at discharge strongly advised smoking cessation and nicotine patch Patient verbalized. Patient's slurred speech and left-sided weakness present on admission completely resolved Patient is ambulatory without support no dizziness, no unsteady gait Speech clear Hemodynamically and medically stable for discharge And follow-up with primary care physician and neurosurgeon per schedule -- Intraparenchymal hematoma of brain Current Visit: No Status: Acute CT head without contrast 04/29/2021; there is a 2.1 x 2.2 x 2.6 cm acute hematoma centered within the right basal ganglia with associated surrounding edema and mild mass-effect as detailed above. CT head without contrast; 04/29/2021; 6 hours [address] the [address] CT head . stable right subcortical hemorrhage no evidence of superimposed abnormality f/u CT head without contrast 04/30/2021; stable right subcortical hemorrhage Maintain systolic blood pressure less than or equal to 140 mmHg. Hydralazine 10 mg IV every 6 hours as needed for systolic blood pressure greater than or equal to 140 mmHg. Neuro surgery evaluated the patient, no surgical intervention, Recommend PT, OT and speech therapy. The high probability of a clinically significant, sudden or life threatening deterioration of the [neuro] system(s) required my full and direct attention, intervention and personal management. The aggregate critical care time was [65] minutes. This time is in addition to time spent performing reported procedures but includes the following: [x] Data Review and interpretation [x] Patient assessment and monitoring of vital signs [x] Documentation [x] Medication orders and management --Nicotine dependence Current Visit: Yes Status: Acute smoking cessation counseling, behavior change counseling, +17 minutes Nicotine patch as needed --DVT prophylaxis Current Visit: Yes Status: Acute SCDs bilateral lower extremities while in bed, No anticoagulation for prophylaxis due to intraparenchymal hemorrhage We will closely monitor the patient and adjust management as needed Follow PT OT and ST evaluation and recommendations Neurosurgical evaluation recommendations noted and appreciated Plan of care discussed with the patient as well as his nurse Disposition: 01 HOME / SELF CARE / HOMELESS Final Discharge Diagnosis (Prints w/discharge instructions): Intraparenchymal hematoma brain [stable]. Ongoing tobacco use Time spent for discharge: 35 min Core Measure Documentation - Palliative Care Palliative Care/ Comfort Measures: Not Applicable - Core Measures Any of the following diagnoses?: none Exam - Constitutional Vitals: Temp Pulse Resp BP Pulse Ox 97.8 F 50 L 13 105/69 98 04/30/21 06:52 05/01/21 06:31 05/01/21 06:31 05/01/21 06:39 05/01/21 06:31 General appearance: Present: no acute distress, well-nourished - EENT Eyes: Present: PERRL, EOM intact - Neck Neck: Present: supple, normal ROM - Respiratory Respiratory effort: normal Respiratory: bilateral: diminished, negative: rales, rhonchi, wheezing - Cardiovascular Rhythm: regular Heart Sounds: Present: S1 & S2 - Extremities Extremities: no ischemia, No edema - Abdominal General gastrointestinal: Present: soft, non-tender, non-distended, normal bowel sounds - Integumentary Integumentary: Present: clear, warm - Musculoskeletal Musculoskeletal: strength equal bilaterally, generalized weakness - Psychiatric Psychiatric: appropriate mood/affect, cooperative - Neurologic Neurologic: moves all extremities Plan Activity: advance as tolerated, fall precautions Diet: regular Additional Instructions: Advised smoking cessation. Nicotine patch as needed. If you have worsening symptoms contact MD or go to the nearest emergency room. Advised to follow-up with neurosurgery per schedule for further evaluation and management Follow up with: PRIMARY CAREMD [Primary Care Provider] - 7 Days BILL MORA II, MD [Staff Physician] - 7 Days Prescriptions: Nicotine [Habitrol] 14 mg TD DAILY #30 patch
--- NOTE | 2021-05-02 14:10 | Electrocardiograph Report ---
[facility] Test Date: 2021-04-29 Test Time: 14:45:55 Pat Name: IZA GUTIERRES Department: Room: [place] [address] Gender: M Spearer: : 1965 Requested By: HESHAM HAILE Order Number: [id number] Reading MD: Juli Olivo Measurements Intervals S[place]y Rate: 45 P: 39 GA: 157 QRS: -9 QRSD: 91 T: 47 QT: 445 QTc: 386 Interpretive Statements Marked sinus bradycardia No previous ECG available for comparison Electronically Signed On 05-02-2021 14:09:43 EDT by Juli Olivo
== END 2021-05-01 17:30 | disposition home or self-care (01) | DRG 65 ==
LOC: ED 10:11 → CC1 11:58
PROVIDERS: ADMIT Internal Medicine; ATTEND Internal Medicine
DX: I61.8 Other nontraumatic intracerebral hemorrhage (principal); F17.213 Nicotine dependence, cigarettes, with withdrawal; G81.94 Hemiplegia, unspecified affecting left nondominant side; G51.0 Bell's palsy; Z71.6 Tobacco abuse counseling; R47.81 Slurred speech
CPT/HCPCS: 36415; 70450; 80048; 85025; 85027; 93005; G0378